=== PATIENT | female | born 1980 | race Caucasian/White ===

== ENCOUNTER 2016-09-30 15:31 | Emergency (ER) | payer BC ==
[~2016-09-30] VITALS: Ht 160 cm; Wt 85.3 kg
[2016-09-30 16:27] LABS: ADD MIUA? YES; BILIRUBIN NEGATIVE; BLOOD LARGE; COLOR AMBER ((YELLOW)); GLUCOSE (STRIP) NEGATIVE; KETONES 20; LEUKOCYTES NEGATIVE; NITRITE NEGATIVE; PROTEIN (STRIP) 100; SPECIFIC GRAVITY 1.025 (1.000-1.030); UROBILINOGEN 0.2 MG/DL (0.2-1.0)
[2016-09-30 16:47] LABS: EPITHELIAL CELLS 1+ /HPF; MUCUS 3+ /LPF; RED BLOOD CELLS TNTC /HPF (0-5); WHITE BLOOD CELLS NONE SEEN /HPF (0-5)
[2016-09-30 16:48] LABS: BACTERIA 1+ /HPF; UCUL ADDED? YES
[2016-09-30 16:55] LABS: HEMATOCRIT 42.2 % (36.0-46.0); MCH 29.2 PG (29.0-34.0); MCHC 34.1 G/DL (30.0-36.0); MCV 85.6 FL (83-99); PLATELET COUNT 303 K/uL (156-360); RBC DIS.WIDTH-CV 12.4 % (11.8-14.6); RBC DIS.WIDTH-SD 38.7 % (39-53); RED BLOOD COUNT 4.93 M/uL (3.80-5.20)
[2016-09-30 17:06] LABS: CHLORIDE 107 mEq/L (99-109); SODIUM 141 mEq/L (136-147)
[2016-09-30 17:08] LABS: GLUCOSE 88 mg/dL (70-99)
[2016-09-30 17:10] LABS: ANION GAP 10 MEQ/L (2-14); TOTAL BILIRUBIN 0.8 mg/dL (0.0-1.0)
[2016-09-30 17:12] LABS: ALKALINE PHOSPHATASE 83 IU/L (3-129)
[2016-09-30 17:13] LABS: GFR ESTIMATE (CALCULATED) > 59 mL/min/; UREA NITROGEN (BUN) 13 mg/dL (9-23)
[2016-09-30 17:22] LABS: QUANTITATIVE HCG < 4.0 MIU/ML
[2016-09-30] MEDS ORDERED: PERCOCET 5/31 TABLET PO (18:07)
[2016-09-30] MEDS ORDERED: TORADOL10 MG PO (18:07)
[2016-09-30] MEDS ORDERED: ZOFRAN ODT4 MG PO (18:07)
[2016-09-30 19:12] VITALS: BP 132/76
== END 2016-09-30 19:13 | disposition home or self-care (01) ==
LOC: EME 15:31
PROVIDERS: Physician Assistant
DX: N20.0 Calculus of kidney (principal); Z87.442 Personal history of urinary calculi; Z72.0 Tobacco use
CPT/HCPCS: 74176; 80053; 81003; 84702; 85027; 87086; 99281; 99285

== ENCOUNTER 2016-12-12 09:00 | Emergency (ER) | payer SELFPAY ==
[~2016-12-12] VITALS: Ht 160 cm; Wt 81.1 kg
[~2016-12-12 09:00] MED LIST: PERCOCET 5/31 TABLET PO; TORADOL10 MG PO; ZOFRAN ODT4 MG PO
[2016-12-12 09:23] LABS: MCH 29.2 PG (29.0-34.0); MCHC 33.6 G/DL (30.0-36.0); MEAN PLAT.VOLUME 9.7 uM^3 (9.5-12.4); PLATELET COUNT 272 K/uL (156-360); RBC DIS.WIDTH-CV 12.6 % (11.8-14.6); RBC DIS.WIDTH-SD 39.9 % (39-53); RED BLOOD COUNT 5.06 M/uL (3.80-5.20); WHITE BLOOD COUNT 12.1 K/uL (4.1-10.2)
[2016-12-12 09:35] LABS: CHLORIDE 102 mEq/L (99-109); POTASSIUM 4.1 mEq/L (3.7-5.4)
[2016-12-12 09:36] LABS: SODIUM 137 mEq/L (136-147)
[2016-12-12 09:37] LABS: GLUCOSE 101 mg/dL (70-99)
[2016-12-12 09:39] LABS: ANION GAP 12 MEQ/L (2-14)
[2016-12-12 09:41] LABS: GFR ESTIMATE (CALCULATED) 54 mL/min/
[2016-12-12 09:42] LABS: UREA NITROGEN (BUN) 17 mg/dL (9-23)
[2016-12-12 09:42] LABS: ADD MIUA? YES; BILIRUBIN NEGATIVE; BLOOD SMALL; COLOR YELLOW ((YELLOW)); GLUCOSE (STRIP) NEGATIVE; KETONES 5; LEUKOCYTES NEGATIVE; NITRITE NEGATIVE; PROTEIN (STRIP) NEGATIVE; SPECIFIC GRAVITY 1.024 (1.000-1.030); UROBILINOGEN 0.2 MG/DL (0.2-1.0)
[2016-12-12 09:46] LABS: BACTERIA RARE /HPF; EPITHELIAL CELLS 2+ /HPF; MUCUS 2+ /LPF; RED BLOOD CELLS 15-20 /HPF (0-5); UCUL ADDED? NO; WHITE BLOOD CELLS 0-5 /HPF (0-5)
[2016-12-12 09:51] LABS: QUANTITATIVE HCG < 4.0 MIU/ML
[2016-12-12] MEDS ORDERED: MOTRIN600 MG PO (13:11)
[2016-12-12] MEDS ORDERED: ROXICODONE5 MG PO (13:11)
[2016-12-12 13:21] VITALS: BP 122/72
== END 2016-12-12 13:23 | disposition home or self-care (01) ==
LOC: EME 09:00
DX: N13.2 Hydronephrosis with renal and ureteral calculous obstruction (principal); F17.200 Nicotine dependence, unspecified, uncomplicated; Z90.49 Acquired absence of other specified parts of digestive tract
CPT/HCPCS: 74176; 80048; 81003; 84702; 85027; 99281; 99285; J1885; J2270

== ENCOUNTER 2017-03-21 15:58 | Emergency (ER) | payer OTHER ==
[~2017-03-21] VITALS: Ht 160 cm; Wt 80.3 kg
[~2017-03-21 15:58] MED LIST changes: +MOTRIN600 MG PO; +ROXICODONE5 MG PO
[2017-03-21] MEDS ORDERED: CIPROFLOXACIN500 M1 PO (16:14)
[2017-03-21] MEDS ORDERED: TYLENOL REGULA325 MG PO (16:15)
[2017-03-21 16:55] LABS: APPEARANCE SL.HAZY ((CLEAR)); BILIRUBIN NEGATIVE; BLOOD NEGATIVE; COLOR YELLOW ((YELLOW)); GLUCOSE (STRIP) NEGATIVE; KETONES 20; LEUKOCYTES SMALL; NITRITE NEGATIVE; PROTEIN (STRIP) 30; SPECIFIC GRAVITY 1.018 (1.000-1.030); UROBILINOGEN 0.2 MG/DL (0.2-1.0)
[2017-03-21 17:02] LABS: BACTERIA RARE /HPF; EPITHELIAL CELLS 2+ /HPF; MUCUS 1+ /LPF; UCUL ADDED? YES; WHITE BLOOD CELLS 20-30 /HPF (0-5)
[2017-03-21 17:09] LABS: HEMATOCRIT 36.8 % (36.0-46.0); HEMOGLOBIN 12.9 G/DL (11.9-15.5); MCH 30.7 PG (29.0-34.0); MCHC 35.1 G/DL (30.0-36.0); MCV 87.6 FL (83-99); PLATELET COUNT 189 K/uL (156-360); RBC DIS.WIDTH-CV 12.3 % (11.8-14.6); RBC DIS.WIDTH-SD 39.7 % (39-53); WHITE BLOOD COUNT 13.4 K/uL (4.1-10.2)
[2017-03-21 17:19] LABS: ALBUMIN 3.7 g/dL (3.2-4.8)
[2017-03-21 17:20] LABS: CHLORIDE 103 mEq/L (99-109); POTASSIUM 4.1 mEq/L (3.7-5.4); SODIUM 133 mEq/L (136-147)
[2017-03-21 17:22] LABS: GLUCOSE 99 mg/dL (70-99); TOTAL PROTEIN 6.7 g/dL (6.4-8.3)
[2017-03-21 17:24] LABS: TOTAL BILIRUBIN 0.7 mg/dL (0.0-1.0)
[2017-03-21 17:25] LABS: ALKALINE PHOSPHATASE 76 IU/L (3-129)
[2017-03-21 17:26] LABS: CREATININE 0.8 mg/dL (0.6-1.3); GFR ESTIMATE (CALCULATED) > 59 mL/min/
[2017-03-21 17:27] LABS: AST (GOT) 18 IU/L (2-34); UREA NITROGEN (BUN) 16 mg/dL (9-23)
[2017-03-21 17:29] LABS: ALT (GPT) 23 IU/L (3-49)
[2017-03-21 17:35] LABS: QUANTITATIVE HCG < 4.0 MIU/ML
[2017-03-21] MEDS ORDERED: ZOFRAN ODT4 MG PO (18:29)
[2017-03-21] MEDS ORDERED: KEFLEX500 MG PO (18:29)
[2017-03-21] MEDS ORDERED: MOTRIN800 MG PO (18:29)
[2017-03-21] MEDS ORDERED: FLOMAX0.4 MG PO (18:29)
[2017-03-21 18:39] VITALS: BP 112/68
== END 2017-03-21 18:50 | disposition home or self-care (01) ==
LOC: EME 15:58
PROVIDERS: Nurse Practitioner Family
DX: N20.2 Calculus of kidney with calculus of ureter (principal); K59.00 Constipation, unspecified; R11.0 Nausea; Z87.442 Personal history of urinary calculi; Z87.440 Personal history of urinary (tract) infections; F17.200 Nicotine dependence, unspecified, uncomplicated; Z88.2 Allergy status to sulfonamides
CPT/HCPCS: 74018; 80053; 81003; 84702; 85027; 87086; 99281; 99285; J7030

== ENCOUNTER 2017-05-13 14:38 | Emergency (ER) | payer OTHER ==
[~2017-05-13] VITALS: Ht 160 cm; Wt 81.6 kg
[~2017-05-13 14:38] MED LIST changes: +CIPROFLOXACIN500 M1 PO; +FLOMAX0.4 MG PO; +KEFLEX500 MG PO; +MOTRIN800 MG PO; +TYLENOL REGULA325 MG PO
[2017-05-13 15:02] LABS: HEMATOCRIT 41.2 % (36.0-46.0); HEMOGLOBIN 14.2 G/DL (11.9-15.5); MCH 30.4 PG (29.0-34.0); MCHC 34.5 G/DL (30.0-36.0); MCV 88.2 FL (83-99); PLATELET COUNT 284 K/uL (156-360); RBC DIS.WIDTH-CV 12.5 % (11.8-14.6); RBC DIS.WIDTH-SD 40.1 % (39-53); RED BLOOD COUNT 4.67 M/uL (3.80-5.20)
[2017-05-13 15:16] LABS: CHLORIDE 105 mEq/L (99-109); POTASSIUM 4.1 mEq/L (3.7-5.4); SODIUM 141 mEq/L (136-147)
[2017-05-13 15:17] LABS: GLUCOSE 124 mg/dL (70-99)
[2017-05-13 15:21] LABS: CREATININE 0.7 mg/dL (0.6-1.3); GFR ESTIMATE (CALCULATED) > 59 mL/min/
[2017-05-13 15:22] LABS: UREA NITROGEN (BUN) 16 mg/dL (9-23)
[2017-05-13 15:44] LABS: APPEARANCE SL.HAZY ((CLEAR)); BILIRUBIN NEGATIVE; BLOOD LARGE; COLOR YELLOW ((YELLOW)); GLUCOSE (STRIP) NEGATIVE; KETONES 80; LEUKOCYTES MODERATE; NITRITE NEGATIVE; PROTEIN (STRIP) 30; SPECIFIC GRAVITY 1.026 (1.000-1.030); UROBILINOGEN 0.2 MG/DL (0.2-1.0)
[2017-05-13 15:55] LABS: BACTERIA RARE /HPF; EPITHELIAL CELLS RARE /HPF; HYALINE CASTS 0-5 /LPF; MUCUS 1+ /LPF; RED BLOOD CELLS TNTC /HPF (0-5); UCUL ADDED? YES; WHITE BLOOD CELLS TNTC /HPF (0-5)
[2017-05-13] MEDS ORDERED: ZOFRAN ODT4 MG PO (16:29)
[2017-05-13 16:36] LABS: SALICYLATE < 5.0 MG/DL (15-30)
[2017-05-13] MEDS ORDERED: LEVAQUIN750 MG PO (18:19)
[2017-05-13] MEDS ORDERED: FLOMAX0.4 MG PO (18:20)
[2017-05-13] MEDS ORDERED: MOTRIN800 MG PO (18:21)
[2017-05-13] MEDS ORDERED: ULTRAM50 MG PO (18:21)
[2017-05-13 19:39] VITALS: BP 143/79
== END 2017-05-13 19:40 | disposition home or self-care (01) ==
LOC: EME 14:38
DX: N13.2 Hydronephrosis with renal and ureteral calculous obstruction (principal); N39.0 Urinary tract infection, site not specified; F17.200 Nicotine dependence, unspecified, uncomplicated; Z87.442 Personal history of urinary calculi; Z98.890 Other specified postprocedural states; Z88.2 Allergy status to sulfonamides
CPT/HCPCS: 74176; 80048; 81003; 85027; 87077; 87086; 87186; G0480; J1885; J7030

== ENCOUNTER 2017-06-04 09:04 | Day surgery (SDC) | payer OTHER ==
[~2017-06-04] VITALS: Ht 160 cm; Wt 82.0 kg
[~2017-06-04 09:04] MED LIST changes: +LEVAQUIN750 MG PO; +ULTRAM50 MG PO
[2017-06-04 09:45] VITALS: BP 136/80
[2017-06-04 12:22] VITALS: BP 120/86
[2017-06-04 13:12] VITALS: BP 131/82
== END 2017-06-04 13:15 | disposition home or self-care (01) ==
LOC: SDC 09:04
PROVIDERS: Urology
DX: N13.2 Hydronephrosis with renal and ureteral calculous obstruction (principal); F17.210 Nicotine dependence, cigarettes, uncomplicated; Z88.2 Allergy status to sulfonamides
CPT/HCPCS: 81025; 82365 90; C2625; J0690; J1100; J1580; J2250; J2405; J3010; J7050